=== PATIENT | male | born 1935 | race Caucasian/White ===

== ENCOUNTER 2023-07-28 08:01 | Day surgery (SDC) | payer OTHER ==
[~2023-07-28] VITALS: Ht 175.3 cm; Wt 68.0 kg
[2023-07-28] MEDS ORDERED: fentaNYL citrate 0.05 MG/ML VIAL ONE (10:14)
[2023-07-28] MEDS ORDERED: MIDAZOLAM 2 MG/2 ML VIAL ONE (10:15)
[2023-07-28] MEDS ORDERED: MIDAZOLAM 2 MG/2 ML VIAL IV ONE (14:35)
== END 2023-07-28 12:15 | disposition home or self-care (01) ==
LOC: MMU 08:01 → MDS 08:01
PROVIDERS: ATTEND Internal Medicine Gastroenterology
DX: R13.12 Dysphagia, oropharyngeal phase (principal); K22.2 Esophageal obstruction; F41.9 Anxiety disorder, unspecified; F32.A Depression, unspecified; Z79.899 Other long term (current) drug therapy
CPT/HCPCS: 43239; 88305; J2250; J3010